=== PATIENT | female | born 1950 | race African-American/Black ===

== ENCOUNTER 2025-06-04 08:50 | Outpatient (AMB) | payer MEDICARE, SELFPAY ==
--- NOTE | 2025-06-04 08:51 | A.OFFVIS_ITS ---
Vital Signs 06/04/25 09:02 Height 4 ft 11 in Weight 83 lb BMI 16.8 BP 128/88 Blood Pressure Location Rt brachial Position Sitting Respiration 16 Pulse 64 Pulse Source Pulse Oximeter Pulse Oximetry (%) 98 Oxygen Delivery Method Room Air Intake Visit Reasons: Seizure [employer] Required: No Accompanied by: Daughter Allergies No Known Allergies Allergy (Verified 06/04/25 09:04) HPI Comments Details: Cathy is a 74-year-old female patient with a past medical history of colitis, anxiety, cirrhosis of the liver, chronic hepatitis C, depression, hypertension, insomnia, mitral regurgitation, MAURISIO, who presents upon referral from primary care for management of seizures. According to office notes from primary care, ?seizure activity remained stable?. There was levetiracetam 500 mg tablets on her medication list with directions to take 2-1/2 tablets by mouth twice daily. Cathy is accompanied today by her daughter. According to the patient and her daughter today, she began having seizures approximately 12 years ago after a CVA. She has chronic right-sided weakness of the upper and lower extremity and some difficulties with gait. She has been experiencing seizure activity on average 4-5 times per year. They describe this activity as tonic-clonic movements primarily to the right side of the body but generally without loss of consciousness. More recently, she has also been experiencing right-sided ?tremors? that last a few seconds and resolve on their own. They are less severe than her other described seizure events. She has no other associated symptoms with these episodes of ?tremor?. A she denies any worsening of weakness on the right side of her body when they do occur. She has been compliant with Keppra 1500 mg twice daily. Since starting on the Keppra, her daughter reports that her more severe seizure events are less frequent. She has not had an episode of abnormal movement on the right side of her body in a couple of weeks. She has not had any severe seizure activity in a few months. Seizure background information: Onset of seizures:About 12 years ago after a CVA Date of last seizure:A couple of months ago Seizure type:Tonic-clinic but worse on the right side but without loss of consciousness Aura/warning signs:None Postictal period:Confusion Triggers:None Last brain imaging:Many years Last EEG:Many years ago Current medications: Levetiracetam 1500 mg twice daily (500 mg tablets 2-1/2 tablets by mouth twice daily) Compliance with medications: Good History of brain infection:No History of significant illness or hospitalization: For CVA about 12 years ago History of stroke of brain bleed:Yes History of pre-term :No History of learning disability:No History of developmental delay:No Family history of seizure:None Driving status:Not driving Family/social support:Lives with with her daughter Social/medical services within the home:None COUNTS INCLUDE 234 BEDS AT THE [facility] Medical History (Updated 06/04/25 @ 09:20 by Melly Carson CNP) Insomnia Depression Anxiety Subclinical hyperthyroidism HLD (hyperlipidemia) Osteoporosis Vitamin B12 deficiency Vitamin D deficiency GERD (gastroesophageal reflux disease) Diverticulosis Cyclic vomiting syndrome Chronic hepatitis C Benign colonic polyp Stress-induced cardiomyopathy Mitral regurgitation Hypertension Congestive heart failure Acute cephalic vein embolism MAURISIO (obstructive sleep apnea) Seizure disorder Hemiparesis affecting right side as late effect of cerebrovascular accident (CVA) Cervical spondylosis with radiculopathy Social History Alcohol intake: never Patient Tobacco Use Status: Current everyday Tobacco user Cigarette Packs Per Day: 1 Review of Systems Const All systems reviewed & are unremarkable except as noted in HPI and below Physical Exam Const General: cooperative and no acute distress Nutritional Appearance: thin Orientation/consciousness: oriented to person and oriented to place Limitations: ambulation with cane Neuro General: oriented to person and oriented to place Cranial nerves: Yes CN's II-XII intact bilaterally Cognition (Neuro): abnormal cognition (Some difficulty with comprehension and responses/speech are slow) Gait exam (Neuro): Antalgic gait present and Assistive device used Motor exam (neuro): Abnormal motor strength present (Chronic a right sided weakness to both the upper and lower extremity 4/5) Deep tendon reflexes (DTR's): Rt Biceps (C5, C6): 2+, Left biceps reflex intensity grade: 2+, Right brachioradialis reflex intensity grade: 2+, Left brachioradialis reflex intensity grade: 2+, Right patellar reflex intensity grade: 2+ and Left patellar reflex intensity grade: 2+ Coordination: [id number] test normal Assessment & Plan Assessment & Plan (1) Seizure disorder: Code(s): G40.909 - Epilepsy, unspecified, not intractable, without status epilepticus Category: Medical Plan Cathy is a 74-year-old female patient with a past medical history of colitis, anxiety, cirrhosis of the liver, chronic hepatitis C, depression, hypertension, insomnia, mitral regurgitation, MAURISIO, who presents upon referral from primary care for management of seizures. The patient and her daughter are both somewhat poor historians however from what I can understand, she began having seizures after a CVA approximately 12 years ago. She has chronic right-sided weakness and generally when she has seizure activity her symptoms are worse in the right side. Her daughter notes that she has more severe seizures approximately 4-5 times per year but more recently she was experiencing ?tremors? of the right side of her body lasting a few sec to minutes that presented somewhat differently than her more severe seizure events. Her daughter did have some concern that these could represent focal seizures. There has been no missed doses of medication. I do not have access to her prior workup from [facility] which I will obtain. Because she has had a slight change in presentation of the seizures, I will repeat her EEG and brain MRI. Once I have testing back, we can make decisions on medication management. -Routine EEG -MRI brain with and without contrast -Obtain imaging from [facility] for comparison -Labs:Leveiteracetam level, tsh, -Follow-up in 6 weeks Orders: Orders TSH reflex Free T4 Today G40.909 - Epilepsy, unspecified, not intractable, without status epilepticus Levetiracetam Keppra Today G40.909 - Epilepsy, unspecified, not intractable, without status epilepticus EEG Routine Today G40.909 - Epilepsy, unspecified, not intractable, without status epilepticus MR head/brain wo/w con Today G40.909 - Epilepsy, unspecified, not intractable, without status epilepticus Coding Level of Care Code New Pt Level 4 (82706) Diagnoses Seizure disorder G40.909
[2025-06-04 09:02] VITALS: BP 128/88; PULSE 64; RESP 16; O2SAT 98; BMI 16.8
--- OUTSIDE RECORDS SUMMARY | 2025-06-04 09:26 | XMS_ITS | Clinical Summary ---
Author Organization [address] Building Address [address] [facility] [address] Phone Care Team Providers Care Casket Liner Name Role Phone Otto Muñoz MD Primary Care Provider [phone] Allergies No known active allergies Medications acetaminophen (TYLENOL) 325 mg tablet Take 650 mg by mouth every 6 hours as needed. Active apixaban (ELIQUIS) 5 mg tablet Take 10 mg by mouth daily. ER prescriber 12/15/19 23 Active aspirin 81 mg EC tablet Take 81 mg by mouth daily. Active atorvastatin (LIPITOR) 20 mg tablet Take 1 tablet (20 mg total) by mouth 1 (one) time each day. 12/22/19 24 Active escitalopram (LEXAPRO) 10 mg tablet Take 1 tablet (10 mg total) by mouth 1 (one) time each day. 12/15/19 23 Active ferrous sulfate 325 mg (65 mg elemental iron) tablet Take 1 tablet (325 mg total) by mouth 1 (one) time each day. 12/15/19 23 Active cyanocobalamin (VITAMIN B-12) 1,000 mcg tablet Take 1 tablet (1,000 mcg total) by mouth 1 (one) time each day. 12/15/19 23 Active mv,calcium,min/i arnulfo/folic/vitK (MULTI FOR HER ORAL) Take 1 tablet by mouth daily. 04/03/20 18 Active metoprolol tartrate (LOPRESSOR) 25 mg tabletIndication s:Essential (primary) hypertension TAKE 3 TABLETS BY MOUTH TWICE A DAY 540 tablet 1 01/03/20 25 Active gabapentin (NEURONTIN) 300 mg capsule Take 1 capsule (300 mg total) by mouth 3 (three) times a day. 90 each 5 01/15/20 25 025 Active NIFEdipine CC (ADALAT CC) 60 mg 24 hr tablet TAKE 1 TABLET BY MOUTH 1 TIME EACH DAY. 90 tablet 1 01/28/20 25 Active levETIRAcetam (KEPPRA) 500 mg tablet TAKE 2 & 1/2 TABLETS BY MOUTH TWICE DAILY 120 tablet 3 06/04/20 25 Active levETIRAcetam (KEPPRA) 500 mg tablet TAKE 2 & 1/2 TABLETS BY MOUTH TWICE DAILY 120 tablet 3 02/18/20 25 025 Discontinued Active Problems Problem Noted Date Diagnosed Date Cervical spondylosis with radiculopathy 03/22/20 23 Overview (05/24/2024): Last Assessment & Plan: Patient is 11 days s/p C4-5, C5-6 ACDF. She has some of the typical posterior neck pain that radiates to the shoulders. Swallow is intact. She has not had any postop fevers, wound drainage, sweats chills. She is using oxycodone approximately 2 tabs every 4-6 hours. We talked about the importance of working on her quitting smoking, she states she has cut down but still is smoking a couple cigarettes per day. Ms. Fernandez is doing well s/p C4-5, C5-6 ACDF. She should note continued improvement as things heal. She has a follow-up appointment with Dr. Alexander in 6 weeks with C-spine x-rays. She asked for refill on her oxycodone, #40 tabs sent to her pharmacy. All postop questions answered. She will call with any concerns or questions. Hemiparesis affecting right side as late effect of cerebrovascular accident (CVA) ([facility] V24, [facility] V28) 09/11/2020 Opiate overdose ([facility] V24, [facility] V28) 07/17 Polysubstance abuse ([facility] V24, [facility] V28) 1 09/16/2019 Cyclic vomiting syndrome 04/03/2018 Acute colitis 04/03/2018 Hyperlipidemia 04/03/2018 Hypertension 04/03/2018 Anxiety 12/13/2017 Insomnia 12/13/2017 Seizure disorder ([facility]/HCC V24, [facility] V28) 09/21 Chronic hepatitis C ([facility]/HCC V24, [facility] V28) 1 09/24/2016 Cirrhosis of liver ([facility]/HCC V24, [facility] V28) Portal hypertension ([facility]/HCC V24, [facility] V28) 1 09/09/2016 Congestive heart failure ([facility] V24, [facility] V 28) 04/14/2017 Depression 02/16/2017 Lumbar radiculopathy 02/16/2017 Osteoporosis 02/14/2017 Benign colonic polyp 12/19/2016 Subclinical hyperthyroidism 02/10/2016 Vitamin B12 deficiency 02/10/2016 Vitamin D deficiency 02/10/2016 Esophageal reflux 06/15/2015 Overview (05/24/2024): Hx esophagitis 2010 Osteoarthrosis 06/15/2015 Acute cephalic vein embolism, right 06/02/2015 Obstructive sleep apnea 04/03/2015 Overview (05/24/2024): Cannot tolerate CPAP. Diverticulosis 11/18/2014 Stress-induced cardiomyopathy 05/06/2013 Mitral regurgitation 12/26/2011 Trochanteric bursitis 10/23/2011 Encounters Date Type Department Care Team Description 04/09/2025 Telephone [facility] [address] [place] [address] Otto Muñoz MD 04/03/2025 Telephone [facility] [address] [place] [address] [place] [phone] Otto Muñoz MD 04/02/2025 8:15 AM EDT Office Visit [facility] [address] [place], [place] [address] [phone] Otto Muñoz MD Seizure disorder ([facility] V24, [facility] V28) (Primary Dx); Cervical spondylosis with radiculopathy from Last 3 Months Immunizations Immunization Administration Dates Next Due Influenza trivalent, 0.5mL ( Fluzone High-dose) 65yo and older 08/29/2023,05/07/2020 Pfizer SARS-CoV-2 COVID-19, mRNA, LNP-S, preservative free 06/25/2022,06/19/2021 Pneumococcal conjugate 13 va lent (Prevnar 13, PCV13) 2mo and older 05/09/2016 Pneumococcal polysaccharide 23 valent (Pneumovax 23) 2yo and older 10/20/2011 Tdap Tetanus diptheria acell ular pertussis (Boostrix; Adacel) 7yo and older 10/02/2017 Surgical History Surgery Date Site/Laterality Comments CHOLECYSTECTOMY PROCEDURE: HISTORICAL CHOLECYSTECTOMY HERNIA REPAIR PROCEDURE: HISTORICAL HERNIA REPAIR/JOSEY TOTAL KNEE ARTHROPLASTY Left PROCEDURE: HISTORICAL TOTAL KNEE REPLACE OTHER SURGICAL HISTORY PROCEDURE: HISTORY OTHER; COMMENT: Esophagogastric Fundoplasty Sammy Fundoplication Robotic-Assisted GASTRIC BYPASS PROCEDURE: WV GASTRIC RSTCV W/BYP W/SM INT RCNSTJ LIMIT ABSRPJ; COMMENT: w/ Emiliano-en-Y HYSTERECTOMY PROCEDURE: HISTORICAL HYSTERECTOMY OTHER SURGICAL HISTORY PROCEDURE: HISTORY OTHER; COMMENT: posterior colporrhaphy (for pelvic relaxation) OTHER SURGICAL HISTORY PROCEDURE: HISTORY OTHER; COMMENT: anterior gastroplexy for hiatal hernia Medical History Medical History Date Comments History of bariatric surgery 09/03/2018 DX: History of bariatric surgery Anxiety 12/13/2017 DX:Anxiety Benign colonic polyp 12/19/2016 DX:Benign c olonic polyp Chronic hepatitis C (CMS/HCC V24, CMS/HCC V28) 07/24/2017 DX:Chronic hepatitis C (HCC) Cirrhosis of liver (CMS/HCC V24, CMS/HCC V28) 07/10/2017 DX:Cirrhosis of liver (HCC) Congestive heart failure (CM S/HCC V24, CMS/HCC V28) 04/14/2017 DX:Congestive heart failure (HCC) Depression 02/16/2017 DX:Depression Diverticulosis 11/18/2014 DX:Diverticulosi s Esophageal reflux 06/15/2015 DX:Esophageal reflux History of encephalopathy 08/23/2017 DX:His tory of encephalopathy History of sepsis 12/20/2016 DX:History of sepsis Hyperlipidemia 04/03/2018 DX:Hyperlipidemi a Hypertension 04/03/2018 DX:Hypertension Lumbar radiculopathy 02/16/2017 DX:Lumbar r adiculopathy Mitral regurgitation 12/26/2011 DX:Mitral r egurgitation Obstructive sleep apnea 04/03/2015 DX:Obstr uctive sleep apnea Osteoarthrosis 06/15/2015 DX:Osteoarthrosi s Osteoporosis 02/14/2017 DX:Osteoporosis Portal hypertension ([facility] V24, [facility] V28) 07/10/2017 DX:Portal hypertension (HCC) Trochanteric bursitis 10/23/2011 DX:Trochan teric bursitis Seizure disorder ([facility] V2 4, [facility] V28) 10/02/2017 DX:Seizure disorder (HCC) Vitamin B12 deficiency 02/10/2016 DX:Vitami n B12 deficiency Vitamin D deficiency 02/10/2016 DX:Vitamin D deficiency History of intracranial hemorrhage 11/18/2014 DX:History of intracranial hemorrhage History of pulmonary embolus (PE) 04/03/2018 DX:History of pulmonary embolus (PE) Subclinical hyperthyroidism 02/10/2016 DX:S ubclinical hyperthyroidism Acute kidney injury ([facility] V24) 12/20/2016 DX:Acute kidney injury (HCC) Cyclic vomiting syndrome 04/03/2018 DX:Cycl ic vomiting syndrome Insomnia 12/13/2017 DX:Insomnia Stress-induced cardiomyopathy 05/06/2013 DX :Stress-induced cardiomyopathy Acute colitis 04/03/2018 DX:Acute colitis Family History Medical History Relation Name Comments Lung cancer Brother 1 Drug abuse Brother 2 Other: hepatitis Brother 2 No Known Problems Daughter Colon cancer Father Other: jaundice Mother Other cancer Sister 1 No Known Problems Sister 2 No Known Problems Sister 3 Relation Name Status Comments Brother 1 Brother 2 Daughter Alive Father Maternal Grandfather Maternal Grandmother Mother Paternal Grandfather Paternal Grandmother Sister 1 Sister 2 Alive Sister 3 Alive Son x3 1 Alive Social History Tobacco Use Types Packs/Day Years Used Date Smoking Tobacco: Every Day Cigarettes 1 59.8 Started: [birth year]/1965 Smokeless Tobacco: Never Tobacco Cessation:Ready to Q uit: Not Asked; Counseling Given: Not Answered Alcohol Use Standard Drinks/Week Comments No 0 (1 standard drink = 0.6 oz pur e alcohol) Comments No Sex and Gender Information Value Date Recorded Sex Assigned at Not on file Legal Sex Female 8:11 AM EST Gender Identity Not on file Sexual Orientation Not on file Obstetrics History Last Filed Vital Signs Vital Sign Reading Time Taken Comments Blood Pressure 133/70 04/02/2025 8:14 AM EDT Pulse 63 04/02/2025 8:14 AM EDT Temperature - - Respiratory Rate - - Oxygen Saturation - - Inhaled Oxygen Concentration - - Weight 42.3 kg (93 lb 4.8 oz) 04/02/2025 8:14 AM EDT Height 149.9 cm (4' 11 ) 04/02/2025 8:14 AM EDT Body Mass Index 18.84 04/02/2025 8:14 AM EDT Plan of Treatment Upcoming Encounters Date Type Department Care Team (Late st Contact Info) Description 08/07/2025 11:30 AM EST Office Visit Internal Medicine - [address] [phone] Otto Muñoz MD [address] [place] [phone] 10/03/2025 8:00 AM EST Office Visit Internal Medicine - [address] [phone] Otto Muñoz MD [address] [place] [phone] Health Maintenance Due Date Last Done Comments Breast Cancer Screening 1950 Hepatitis A Vaccines (1 of 2 - Risk 2-dose series) 1971 RSV Immunization Adult Patients (1 - Risk 50-74 years 1-dose series) 2002 Zoster Vaccines (1 of 2) 2002 Hepatitis B Vaccines (1 of 3 - Risk 3-dose series) 2012 Lung Cancer Screening (Low Dose CT) 07/24/2022 Osteoporosis Screening (Bone Density Screening) 07/24/2022 Social Influencers of Health Screening 07/24/2022 COVID-19 Vaccine ( season) 2025 06/25/2022, 06/19/2021, 05/29/2021, Additional history exists Influenza Vaccine (#1) 2025 , 05/07/2020, 06/12/2018, Additional history exists Falls Risk Assessment 10/22/2025 10/22/2024, 025 Medicare Annual Wellness Visit 10/22/2025 10/22/2024 Hypertension/CHF/CAD Annual BMP Blood Test 10/29/2025 10/29/2024, 12/14/2022 Colorectal Cancer Screening: Colonoscopy 01/17/2027 01/17/2017 DTaP,Tdap,and Td Vaccines (2 - Td or Tdap) 10/02/2027 10/02/2017 Cholesterol Screening (Lipid Panel) 10/29/2029 10/29/2024, 12/14/2022 Hepatitis C Screening Completed 01/04/2017 Pneumococcal Vaccine: 50+ Years Completed 06/12/2018, 05/09/2016, 04/10/2013, Additional history exists Depression Screening Completed 10/22/2024, 07/03/20 HIB Vaccines Aged Out No longer eligi ble based on patient's age to complete this topic HPV Vaccines Aged Out No longer eligi ble based on patient's age to complete this topic IPV Vaccines Aged Out No longer eligi ble based on patient's age to complete this topic MMR Vaccines Aged Out No longer eligi ble based on patient's age to complete this topic Meningococcal ACWY Vaccine Aged Out N o longer eligible based on patient's age to complete this topic Meningococcal B Vaccine Aged Out No l onger eligible based on patient's age to complete this topic RSV Immunization Patients Under 20 months Aged Out No longer eligible based on patient's age to complete this topic Varicella Vaccines Aged Out No longer eligible based on patient's age to complete this topic Procedures Procedure Name Priority Date/Time Associated Diagnosis Comments BASIC METABOLIC PANEL Routine 10/29/2024 2:14 PM EDT Pure hypercholesterolemia LIPID PANEL WITH REFLEX TO DIRECT LDL Routine 10/29/2024 2:14 PM EDT Pure hypercholesterolemia DEPRESSION SCREENING Routine 07/03/2023 COLONOSCOPY Routine 01/17/2017 HEPATITIS C SCREENING Routine 01/04/2017 from Last 3 Months or Most Recently Relevant to Health Maintenance Results * (ABNORMAL) Lipid panel with reflex to direct LDL (10/29/2024 2:14 PM EDT) Cholesterol 169 0 - 200 mg/dL LAB CHEMISTRY METHOD 10/29/2024 5:00 PM EDT [facility] Triglycerides 226(H) 0 - 150 mg/dL LAB CHEMISTRY METHOD 10/29/2024 5:00 PM EDT [facility] HDL 57 >=40 mg/dL LAB CHEMISTRY METHOD 10/29/2024 5:00 PM EDT [facility] LDL Calculated 67 0 - 100 mg/dL LAB CHEMISTRY METHOD 10/29/2024 5:00 PM EDT [facility] VLDL Cholesterol Yusuf 45.2 mg/dL LAB CHEMISTRY METHOD 10/29/2024 5:00 PM EDT [facility] Non HDL Chol. (LDL+VLDL) 112 <145 mg/dL LAB CHEMISTRY METHOD 10/29/2024 5:00 PM EDT [facility] Chol/HDL Ratio 3.0 0.0 - 4.4 LAB CHEMISTRY METHOD 10/29/2024 5:00 PM T [facility] Blood Venous blood specimen / Unknown Venipuncture / Unknown 10/29/2024 2:14 PM EDT 10/29/2024 2:14 PM EDT us Otto Muñoz MD LAB BLOOD ORDERABLES Final Res ult [facility] [address] [place] [address], * Basic metabolic panel (10/29/2024 2:14 PM EDT) Pathologist [facility] Sodium 138 133 - 145 mmol/L LAB CHEMISTRY METHOD 10/29/2024 4:54 PM T [facility] Potassium 4.5 3.5 - 5.5 mmol/L LAB CHEMISTRY METHOD 10/29/2024 4:54 PM EDT [facility] Chloride 107 96 - 110 mmol/L LAB CHEMISTRY METHOD 10/29/2024 4:54 PM EDT [facility] CO2 23 21 - 32 mmol/L LAB CHEMISTRY METHOD 10/29/2024 4:54 PM EDT [facility] Anion Gap 8 3 - 11 LAB CHEMISTRY METHOD 10/29/2024 4:54 PM EDT [facility] Glucose 77 70 - 100 mg/dL LAB CHE[facility]STRY [facility] BUN 16 5 - 25 mg/dL LAB CHEMISTRY METHOD 10/29/2024 4:54 PM [facility] Creatinine 0.72 0.50 - 1.10 mg/dL LAB CHEMISTRY METHOD [facility]/29[facility]24 [facility] eGFR 89 >=60 mL/min/1. 73m2 LAB CHEMISTRY METHOD 10/29/2024 4:54 PM EDT [facility] Comment:Calculation based on the Chronic Kidney Disease Epidemiology Collaboration (CKD-EPI) equation refit without adjustment for race. BUN/Creatinine Ratio 22.2 LAB CHEMISTRY METHOD 10/29/2024 4:54 PM [facility] Calcium 8.6 8.5 - 10.5 mg/dL LAB CHEMISTRY METHOD 10/29/2024 4:54 PM [facility] Blood Venous blood specimen / Unknown Venipuncture / Unknown 10/29/2024 2:14 PM EDT 10/29/2024 2:14 PM EDT Otto Muñoz MD LAB BLOOD ORDERABLES Final Res ult [facility] [address] [place] [address], * Depression Screening (07/03/2023) Depression Screening abstracted Historical Provider HEALTH MAINTENANCE Final Result * Colonoscopy (01/17/2017) Colonoscopy no interpreta tion,abstr acted Anatomical Region Laterality Modality Other Historical Provider HEALTH MAINTENANCE Final Result * Hepatitis C Screening (01/04/2017) Hepatitis C Screening abstracted Historical Provider HEALTH MAINTENANCE Final Result from Last 3 Months or Most Recently Relevant to Health Maintenance Insurance [employer] MED[employer]ARE [employer]VANTAGE Advance Directives Documents on File Type Date Recorded Patient Cylinder Batcher Expl anation Health Care Decision (hx) 03/24/2014 AD HUERTA DIRECTIVE Health Care Decision (hx) 03/24/2014 AD HUERTA DIRECTIVE Health Care Decision (hx) 03/24/2014 AD HUERTA DIRECTIVE Health Care Decision (hx) 03/24/2014 AD HUERTA DIRECTIVE Health Care Decision (hx) 03/24/2014 AD HUERTA DIRECTIVE Health Care Decision (hx) 03/24/2014 AD HUERTA DIRECTIVE Health Care Decision (hx) 03/06/2014 AD HUERTA DIRECTIVE Health Care Decision (hx) 03/06/2014 AD HUERTA DIRECTIVE Health Care Decision (hx) 03/06/2014 AD HUERTA DIRECTIVE Health Care Decision (hx) 03/06/2014 AD HUERTA DIRECTIVE Health Care Decision (hx) 03/06/2014 AD HUERTA DIRECTIVE Health Care Decision (hx) 03/06/2014 AD HUERTA DIRECTIVE Care Teams Casket Liner Relationship Specialty Start Date End Date Otto Muñoz MD [address] [place] [id number] PCP - General Internal Medicine 10/14/24
--- OUTSIDE RECORDS SUMMARY | 2025-06-04 09:26 | XMS_ITS | Clinical Summary ---
Author Organization [place] [address] Care Team Providers Care Software Applications Engineer Name Role Phone Tess Ledezma MD Primary Care Provider [phone] Allergies No known active allergies Medications metoclopramide (REGLAN) 10 mg tablet Take 10 mg by mouth 4 times daily. Active lisinopril (PRINIVIL;ZESTRI L) 10 mg tablet Take 10 mg by mouth daily. Active metoprolol tartrate (LOPRESSOR) 50 mg tablet Take 50 mg by mouth daily. Active citalopram (CELEXA) 20 mg tablet Take 20 mg by mouth daily. Active gabapentin (NEURONTIN) 300 mg capsule Take 300 mg by mouth 2 times daily. Active omeprazole (PRILOSEC) 20 mg capsule Take 20 mg by mouth daily. Active Cholecalciferol, Vitamin D3, 50,000 unit Cap Take 50,000 Units by mouth. Active lidocaine (LIDODERM) 5 %(700 mg/patch) Place 1 patch onto the skin daily. 30 patch 0 02/11/2014 Active Social History Tobacco Use Types Packs/Day Years Used Date Smoking Tobacco: Every Day Cigarettes Comments Unknown Sex and Gender Information Value Date Recorded Sex Assigned at Not on file Legal Sex Female 10:53 AM EST Gender Identity Not on file Sexual Orientation Not on file Last Filed Vital Signs Vital Sign Reading Time Taken Comments Blood Pressure 117/64 02/11/2014 3:31 PM EDT Pulse 71 02/11/2014 3:31 PM EDT Temperature - - Respiratory Rate - - Oxygen Saturation - - Inhaled Oxygen Concentration - - Weight 63.5 kg (140 lb) 02/11/2014 3:31 PM EDT Height 152.4 cm (5') 02/11/2014 3:31 PM EDT Body Mass Index 27.34 02/11/2014 3:31 PM EDT Plan of Treatment Health Maintenance Due Date Last Done Comments CT Colonography 1952 Colonoscopy 1952 Colorectal Cancer Screening 1950 FIT DNA 1952 FIT 1950 Sigmoidoscopy (10 year) with FIT yearly 1952 Sigmoidoscopy 1952 Hepatitis C Screening 1970 Tetanus/Diphtheria/Pertussis Vaccines (1 - Tdap) 06/11 Breast Cancer Share Decision Needed 1992 Breast Cancer screening 1992 Pneumoccocal Vaccine: 50+ (1 of 1 - PCV) 2002 Zoster vaccine (1 of 2) 2002 Advance Directive 2007 Bone Density Scan 2017 Covid-19 Vaccine (1 - season) 2025 Influenza (Flu) vaccine (1 o f 1 - Influenza standard series) 04/21/2025 Care Teams Software Applications Engineer Relationship Specialty Start Date End Date Tess Ledezma MD PCP - General 02/11/14
--- OUTSIDE RECORDS SUMMARY | 2025-06-04 09:26 | XMS_ITS | Clinical Summary ---
Author Organization [facility] Address [address] [place] [address] Care Team Providers Care Game Preserve Manager Name Role Phone Otto Muñoz MD Primary Care Provider Allergies No known active allergies Medications Medication Sig Dispensed Refills Start Date End Date Status atorvastatin (LIPITOR) tablet 20 mg Take 1 tablet (20 mg total) by mouth daily. 0 01/24/2023 Active buprenorphine (BUTRANS) 5 MCG/HR PTWK APPLY 1 TRANSDERMAL EVERY WEEK FOR 28 DAYS 0 01/11/2023 Active escitalopram (LEXAPRO) tablet 10 mg Take 1 tablet (10 mg total) by mouth daily. 0 02/25/2023 Active gabapentin (NEURONTIN) 300 MG capsule Take 1 capsule (300 mg total) by mouth 2 (two) times a day. 0 01/13/2023 Active levETIRAcetam (KEPPRA) 500 MG tablet TAKE 2 & 1/2 TABLETS BY MOUTH TWICE DAILY 0 01/24/2023 Active metoprolol tartrate (LOPRESSOR) 25 MG tablet Take 3 tablets (75 mg total) by mouth 2 (two) times a day. 0 01/25/2023 Active NIFEdipine ER (ADALAT CC) 60 MG 24 hr tablet Take 1 tablet (60 mg total) by mouth daily. 0 01/24/2023 Active Active Problems No known active problems Social History Tobacco Use Types Packs/Day Years Used Date Smoking Tobacco: Every Day Cigarettes 0.5 Smokeless Tobacco: Never Tobacco Cessation:Ready to Q uit: Not Asked; Counseling Given: Not Answered Alcohol Use Standard Drinks/Week Comments Never 0 (1 standard drink = 0.6 oz pur e alcohol) Sex and Gender Information Value Date Recorded Sex Assigned at Not on file Gender Identity Not on file Sexual Orientation Not on file Job Start Date Occupation Industry Not on file Not on file Not on file Last Filed Vital Signs Vital Sign Reading Time Taken Comments Blood Pressure 148/79 03/01/2023 1:16 PM EDT Pulse 72 03/01/2023 1:16 PM EDT Temperature 37.1 C (98.7 F) 03/01/2023 1:16 PM EDT Respiratory Rate - - Oxygen Saturation 98% 03/01/2023 1:16 PM EDT Inhaled Oxygen Concentration - - Weight - - Height - - Body Mass Index - - Plan of Treatment Health Maintenance Due Date Last Done Comments Hepatitis C Screening 1952 Depression Screening 1964 Preventative Health Evaluation 1970 Colon Cancer Screening (Colonoscopy) 1997 Breast Cancer Screening (Mammogram) 2002 Shingrix-Zoster Vaccine (1 of 2) 2002 Fall Risk Assessment 2017 Osteoporosis Screening (DEXA Scan) 2017 Pneumococcal Vaccine (3 of 3 - PPSV23 or PCV20) 04/10/2018 05/09/2016, 04/10/2013, 10/20/2011 COVID-19 Vaccine (3 - season) 2025 10/24/2020, 10/03/2020 Influenza Vaccine (#1) 2025 0, 06/02/2018, 05/18/2015, Additional history exists RSV Adult > 60+ Yrs or (1 - 1-dose 75+ series) 2027 DTap / Tdap / Td (2 - Td or Tdap) 10/02/2027 10/02/2017 Hepatitis B Vaccines Aged Out No long er eligible based on patient's age to complete this topic RSV Ped < 20 months Aged Out No longe r eligible based on patient's age to complete this topic Care Teams Game Preserve Manager Relationship Specialty Start Date End Date Otto Muñoz MD PCP - General Internal Medicine 12/28/22
== END 2025-06-04 09:26 | disposition home or self-care (01) ==
PROVIDERS: PCP Internal Medicine; Visit Provider Nurse Practitioner
DX: G40.909 Epilepsy, unspecified, not intractable, without status epilepticus (principal)
CPT/HCPCS: 99204

== ENCOUNTER → 2025-06-04 08:50 | Outpatient (BNVA) | payer MEDICARE, SELFPAY | PROVIDERS: PCP Internal Medicine; Visit Provider Nurse Practitioner | DX: G40.909 Epilepsy, unspecified, not intractable, without status epilepticus (principal) | CPT/HCPCS: 99202 ==